=== PATIENT | male | born 1955 | race Caucasian/White ===

== ENCOUNTER 2022-01-12 15:45 | Outpatient (RCR) | payer MEDICARE, BC, SELFPAY | END 2022-04-19 09:36 | disposition home or self-care (01) | PROVIDERS: PCP Family Medicine; Visit Provider Family Medicine | DX: M25.512 Pain in left shoulder (principal); Z51.89 Encounter for other specified aftercare | CPT/HCPCS: 97110; 97161 ==

== ENCOUNTER 2023-02-13 13:45 | Outpatient (RCR) | payer MEDICARE, BC, SELFPAY | END 2023-05-01 09:00 | disposition home or self-care (01) | PROVIDERS: PCP Family Medicine; Visit Provider Family Medicine | DX: M54.2 Cervicalgia (principal); M25.512 Pain in left shoulder; M62.81 Muscle weakness (generalized); Z51.89 Encounter for other specified aftercare | CPT/HCPCS: 97110; 97162 ==

== ENCOUNTER 2023-09-25 13:35 | Outpatient (REF) | payer MEDICARE, BC, SELFPAY | END 2023-09-25 13:36 | disposition home or self-care (01) | LOC: NPINS 13:35 | PROVIDERS: PCP Family Medicine; Visit Provider Optometrist | DX: H20.011 Primary iridocyclitis, right eye (principal) | CPT/HCPCS: 87070; 87205 ==

== ENCOUNTER 2025-03-14 07:28 | Outpatient (CLI) | payer MEDICARE, BC, SELFPAY | END 2025-03-14 07:29 | disposition home or self-care (01) | LOC: NFLDREF 03-19 11:42 | PROVIDERS: PCP Family Medicine; Referring Provider Family Medicine; Visit Provider Internal Medicine | DX: Z13.220 Encounter for screening for lipoid disorders (principal); Z13.228 Encounter for screening for other metabolic disorders; Z12.5 Encounter for screening for malignant neoplasm of prostate; Z13.6 Encounter for screening for cardiovascular disorders | CPT/HCPCS: 80053; 80061; G0103 ==

== ENCOUNTER 2025-04-30 10:00 | Outpatient (RCR) | payer MEDICARE, BC, SELFPAY ==
--- NOTE | 2025-04-09 13:29 | PT.OPEX ---
PT [place] [facility] PT [facility] Outpatient Eval Start: 04/09/25 12:34 Freq: Status: Active Protocol: Document 04/09/25 12:34 CRP (Rec: 04/09/25 13:29 CRP [id number]) E-signed By Neftali Basurto PT Physical Therapy Outpatient Evaluation Insurance Information Recert Due Date 07/08/25 Insurance Name Medicare B Medical Diagnosis Sciatica Referring MD Dr Almonte Subjective Subjective Pt c.o burning into bilat gluteals and at times burning pain into the R ant tib. R lower leg gets worse driving car. Pt has had issues off and on for awhile and more prominent the last few months. If trying to sleep on L side he will get burning pain up his back/ side. Gluteal pain and lower leg pain will increase with standing in one spot. Can usually find comfortable position sitting. Bending and lifting increase LBP. Has a lot of stiffness through lower body. No specific exercise plan. Does note that by the end of mowing the lawn he will have increased glover pain on the R. Pt is retired at this time. Bilat HUSEYIN Current Work Status Retired Objective Other/Pertinent Trunk ROM Flex WNL, Ext mod dec with LBP, R SB min dec, Objective L SL min/mod dec, Bilat rot mod dec Hip ROM: flex 110 deg bilat, ER 35 deg bilat. SLR negative bilat for LBP but shows adverse neurodynamics MMT: Myotomes WNL. R hip abd 4+/5 but with burning pain Segmental testing: UPA painful L5-S1 bilat with R greater than L Assessment Assessment/ Pt presents to the clinic with signs and sxs that Impression suggest issues related to lumbar spine DDD/DJD and resulting radicular sxs with related adverse neurodynamics. Skilled PT is necessary to incorporate ther ex, nm rock, manual therapy and pt education to decrease pain and improve functional mobility. 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 Pt will be independent with HEP in 8 weeks. Goals 2. Pt will complete 60 min of thermal cutter hand with 80% decrease in burning pain in 10 weeks. 3. Pt will care for grandkids for a full day with 80% decrease in burning pain in 12 weeks. Coordination/ Referral Source Communication With Treatment Plan/ Joint Mobilization,Manual Therapy,Neuromuscular Re-ed, Direct Interventions Self-Care/Home Management,Therapeutic Activities, Therapeutic Exercises,Traction (Mechanical) Frequency/Duration 1-2x/wk for 12 weeks Patient Will Be Completion of LTG(s),Skills Plateau,Independent w/HEP, Discharged From Independently Progressing Therapy Evaluation Billing Untimed Code 40 Treatment Minutes Complexity Moderate Certification Information Initial 04/09/25 Certification Date Ending Certification 07/08/25 Date Provider Signature Yes Required Provider Signature POC & Medical Necessity Shows Agreement With Physician NPI Number Write NPI# Here Physician Comment/ : Change Physician Signature Please Sign/Date Here & Date Requested
== END 2025-04-30 11:21 | disposition home or self-care (01) ==
PROVIDERS: PCP Internal Medicine; Visit Provider Internal Medicine
DX: M54.30 Sciatica, unspecified side (principal); Z51.89 Encounter for other specified aftercare
CPT/HCPCS: 97110; 97140; 97162